=== PATIENT | male | born 1995 | race Caucasian/White ===

== ENCOUNTER → 2020-08-19 07:56 | Outpatient (CLI) | payer OTHER ==
[2020-06-23 02:20] VITALS: BMI 27.2
[~2020-08-19 07:56] MED LIST: ANTIDEPRESSANT; HYDROCODON-ACE1 EA10 PO
== END | disposition home or self-care (01) ==
LOC: D.CT 07:56
PROVIDERS: ATTEND Clinical Nurse Specialist Family Health
DX: M25.562 Pain in left knee (principal)

== ENCOUNTER 2020-08-19 08:17 | Emergency (ER) | payer OTHER ==
[~2020-08-19] VITALS: Ht 180.3 cm; Wt 86.4 kg
[2020-08-19 08:20] VITALS: BP 119/75; Ht 180.3 cm; Wt 86.4 kg
== END 2020-08-19 08:59 | disposition home or self-care (01) ==
LOC: D.ER 08:17
DX: M25.562 Pain in left knee (principal)

== ENCOUNTER → 2020-09-06 07:49 | Outpatient (CLI) | payer OTHER ==
[2020-08-19 08:20] VITALS: BMI 26.5
== END | disposition home or self-care (01) ==
LOC: D.MRI 07:49
PROVIDERS: ATTEND Orthopaedic Surgery
DX: M54.16 Radiculopathy, lumbar region (principal)